=== PATIENT | male | born 1990 | race Two or more races ===

== ENCOUNTER 2022-03-04 14:38 | Emergency (ER) | payer OTHER, SELFPAY ==
[2022-03-04 14:42] VITALS: BP 134/80; PULSE 93; RESP 18; TEMP 37.1; O2SAT 96
--- NOTE | 2022-03-04 15:18 | ED.WOUNDLAC ---
HPI - Wound/Laceration General Chief Complaint: Wound/Laceration Stated Complaint: left side of face lac Time Seen by Provider: 03/04/22 15:10 Source: patient, RN notes reviewed and old records reviewed Mode of arrival: ambulatory Limitations: no limitations History of Present Illness HPI narrative: 32 year old male who presents to [facility] care with a laceration to the left side of his face on upper cheek under eye which occurred when he was using a large wrench when he pulled back on it he struck self in face with the end of wrench, bleeding is controlled. Patient denies any visual changes or any pain to orbital area. Onset (ago): hour(s) (with in past hour prior to arrival) Location: face Related Data Home Medications Medication Instructions Recorded Confirmed No Home Medications 03/04/22 03/04/22 Allergies Allergy/AdvReac Type Severity Reaction Status Date / Time No Known Allergies Allergy Verified 03/04/22 15:03 Review of Systems Review of Systems: CONSTITUTIONAL: Denies fever, chills, or sweats. EYES: Denies visual changes, redness, or discharge, no tenderness to orbital area ENT: Denies rhinorrhea, congestion, sore throat, or otalgia. CARDIOVASCULAR: Denies chest pain, palpitations, or edema. RESPIRATORY: Denies cough or dyspnea. GASTROINTESTINAL: Denies abdominal pain, nausea, vomiting, or diarrhea. GENITOURINARY: Denies dysuria or hematuria. SKIN: Denies rash or itching.0.8cm laceration upper cheek on left under eye MUSCULOSKELETAL: Denies back pain, joint pain, or myalgia. NEUROLOGIC: Denies headache, numbness, or weakness. PSYCHIATRIC: Denies anxiety or depression. FORMERLY [facility] Past Medical History Medical History (Updated 03/07/22 @ 09:49 by Jigna Mclain NP) No significant past medical history Surgical History Surgical History (Updated 03/07/22 @ 09:50 by Jigna Mclain NP) No history of previous surgery Social History Social History (Updated 03/07/22 @ 09:52 by Jigna cMlain NP) Smoking packs per day: 0.5 Smoking cigarettes per day: 10.0 Years smoked: 10 Smoking pack-years: 5.00 Smoking status: Current every day smoker Alcohol intake: current Alcohol use details: social Substance use type: does not use Gender identity (if verbalized by the patient): Male Exam Narrative: GENERAL: Well-appearing, well-nourished, and in no acute distress. HEAD: Normocephalic, atraumatic.no pain to left eye or orbital area EYES: PERRLA and EOMI.0,8 cm simple laceration to left upper cheek under eye ENT: Nares clear, no rhinorrhea or epistaxis. Mucous membranes moist.TM's normal with good light reflex, throat pink with no lesions or exudates, NECK: Supple. no lymphadenopathy CHEST: Clear to auscultation. No respiratory distress.SAO2 96% on room air HEART: Regular rate and rhythm. No murmur heard. Normal peripheral pulses. ABDOMEN: Soft, nontender, nondistended, normal active bowel sounds. EXTREMITIES: Normal range of motion. No edema. SKIN: Warm, dry, no rash. NEURO: No focal deficits. Alert and oriented x3. Course Course Level of Care: Express Care Visit Vital Signs Vital signs: Vital Signs Temperature 37.1 C 03/04/22 14:42 Pulse Rate 93 03/04/22 14:42 Respiratory Rate 18 03/04/22 14:42 Blood Pressure 134/80 03/04/22 14:42 Pulse Oximetry 96 03/04/22 14:42 Oxygen Delivery Room Air 03/04/22 14:42 Temperature 37.1 C 03/04/22 14:42 Pulse Rate 93 03/04/22 14:42 Respiratory Rate 18 03/04/22 14:42 Blood Pressure 134/80 03/04/22 14:42 Pulse Oximetry 96 03/04/22 14:42 Oxygen Delivery Room Air 03/04/22 14:42 Procedures Laceration Laceration 1: Date: 03/04/22 Time: 15:20 Site: face Side (If applicable): left Size (cm): 0.8 Description: linear Depth: simple, single layer Local Anesthetic: none Pre-repair: wound explored, irrigated and other (cleansed with Primaderm)
== END 2022-03-04 15:40 | disposition home or self-care (01) ==
PROVIDERS: Emergency Provider Registered Nurse
DX: S01.412A Laceration without foreign body of left cheek and temporomandibular area, initial encounter (principal); W27.8XXA Contact with other nonpowered hand tool, initial encounter; F17.210 Nicotine dependence, cigarettes, uncomplicated
CPT/HCPCS: 12011; 99212; G0463